=== PATIENT | female | born 1990 | race Caucasian/White ===

== ENCOUNTER 2019-08-22 02:37 | Emergency (ER) | payer MEDICAID, SELFPAY ==
[2019-08-22 02:41] VITALS: BP 138/82; PULSE 135; RESP 18; TEMP 37.2; O2SAT 98; BMI 37.1
--- NOTE | 2019-08-22 02:42 | ED_ITS ---
Entered by Allyn Nichole, acting as scribe for Radha Mcmanus MD HPI - Chest Pain General: Chief Complaint: Fever Stated Complaint: cp/fever/tolliver Time Seen by Provider: 08/22/19 02:40 Source: patient Mode of arrival: ambulatory Limitations: no limitations History of Present Illness: HPI narrative: 28 yo f came to the er pov for chest pain, fever, cough, eye and head pain. 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 Pt states that her 2 boys had the flu last week. She denies any vomiting or diarrhea. She denies any shortness of breath. Patient denies any worsening or improving factors. complaint: chest pain and other Onset (ago): day(s) (last night) Timing of current episode: constant Prior episodes: No Onset: during rest Pain radiation: none Severity: mild Associated symptoms: Reports fever(s); Deny abdominal pain, nausea or vomiting Review of Systems 2 General: Reports: other (negative unless marked) Const: Reports: fever Eyes: Denies: blurry vision or eye discomfort ENMT: Denies: throat pain or dental pain Card: Reports: chest pain Resp: Reports: productive cough GI: Denies: abdominal pain, nausea, vomiting or diarrhea : Denies: painful urination Musc: Denies: neck pain or back pain Skin/Breast: Denies: rash Neuro: Reports: headache Psych: Denies: depression Rashel/Lymph: Denies: easy bruising All/Imm: Denies: hives Physical Exam Const: COMMON NORMALS: no apparent distress, oriented x3 and healthy appearing HENMT: COMMON NORMALS: normocephalic and head/scalp atraumatic HEAD & SCALP: normocephalic and atraumatic Eye: COMMON NORMALS: PERRL and EOMs intact bilaterally PUPIL: Yes PERRL Neck/C-Spine: COMMON NORMALS: full ROM and supple Chest: COMMONS NORMALS: inspection of chest normal and palpation of chest normal Resp: COMMON NORMALS: normal respiratory effort, no retractions, no use of accessory muscles and clear to auscultation bilaterally AUSCULTATION: clear to auscultation bilaterally Cardio: COMMON NORMALS: regular rhythm and no murmurs RATE: tachycardic RHYTHM: regular rhythm GI: COMMON NORMALS: normal to inspection, nondistended, normoactive bowel sounds, soft to palpation, non-tender and no masses PALPATION: Yes soft Extremity: COMMON NORMALS: normal to inspection and full ROM Neuro: COMMON NORMALS: oriented x3, moves all extremities and no focal motor deficits Psych: COMMON NORMALS: mental status grossly normal, thought process normal and cooperative THOUGHT PROCESS: normal thought process Skin: COMMON NORMALS: no rashes or lesions noted and no wounds GENERAL SKIN EXAM: no rashes or lesions noted Course Vital Signs: Vital signs: Vital Signs Temperature 99 F 08/22/19 02:41 Pulse Rate 135 H 08/22/19 02:41 Respiratory Rate 18 08/22/19 02:41 Blood Pressure 138/82 08/22/19 02:41 Pulse Oximetry 98 08/22/19 02:41 MDM - Chest Pain MDM Narrative: Medical decision making narrative: Patient presents with cough congestion and did have some tachycardia. She had an elevated d-dimer and CT scan here showed no signs of pulmonary embolism. Patient CT showed no signs of pneumonia. Patient likely has a viral upper respiratory infection. Her influenza was negative. Treatment supportive and she is to take Motrin and Tylenol at home. She does vape and I did give her cessation counseling. She is stable for discharge is return if worsening. Lab Data: Labs: Lab Results 08/22/19 08/22/19 08/22/19 Range/Units 02:55 02:55 02:55 WBC (4.0-10.0) 10^3/ uL RBC (4.1-5.3) 10^6/u L Hgb (11.5-15.3) g/dL Hct (37.0-47.0) % MCV (81-99) fL MCH (28.0-34.0) pg MCHC (30.0-36.0) g/dL RDW (12.1-15.1) % Plt Count (130-400) 10^3/c mm MPV (7.4-10.4) fL Neut % (Auto) % Lymph % (Auto) % [place] % (Auto) % Eos % (Auto) % Baso % (Auto) % Neut # (Auto) (1.8-7.7) 10^3/u L Lymph # (Auto) (0.8-4.8) 10^3/u L [place] # (Auto) (0.2-0.9) 10^3/u L Eos # (Auto) (0.0-0.8) 10^3/u L Baso # (Auto) (0.0-0.1) 10^3/u L Nucleated RBC % (a uto) % Nucleated RBCs # /100WBC D-Dimer (0-0.59) ug/mIFE U Sodium (136-145) mmol/L Potassium (3.5-5.1) mmol/L Chloride (98-107) mmol/L Carbon Dioxide (22-29) mmol/L Anion Gap (5-19) BUN (6-20) mg/dL Creatinine (0.5-0.9) mg/dL GFR Calculation (90-130) mL/min Glucose (65-115) mg/dL Calculated Osmolal ity (285-295) mOsm/k g Calcium (8.5-10.5) mg/dL Total Bilirubin (0.15-1.2) mg/dL AST (0-32) U/L ALT (0-33) U/L Alkaline Phosphata se (35-105) IU/L Total Protein (6.6-8.7) g/dL Albumin (3.5-5.2) g/dL Globulin (1.3-4.6) g/dL Lipase (13-60) U/L HCG, Qual Negative (Negative) Urine Color Yellow (Yellow) Urine Appearance Clear (CLEAR) Urine pH 8 H (5-7) Ur Specific Gravit y 1.010 (1.005-1.030) Urine Protein Neg (Negative) Urine Glucose (UA) Norm (Normal) Urine Ketones Negative (Negative) Urine Blood Trace H (Negative) Urine Nitrate Negative (Negative) Urine Bilirubin Neg (NEGATIVE) Prot Sulfosalicyli c Acd Negative Urine Urobilinogen Norm (Negative) mg/dL Ur Leukocyte Varsha ase Negative (Negative) Urine RBC 5-10 H (0-2) /hpf Urine WBC None (0-5) /hpf Ur Squamous Epith Cells 5-10 H (0-5) Urine Bacteria 2+ H (NONE) Influenza Type A A g Negative (Negative) POC Influenza B Ag Negative (Negative) 08/22/19 08/22/19 08/22/19 Range/Units 02:55 02:55 02:55 WBC 7.5 (4.0-10.0) 10^3/ uL RBC 4.80 (4.1-5.3) 10^6/u L Hgb 13.9 (11.5-15.3) g/dL Hct 41.0 (37.0-47.0) % MCV 85.4 (81-99) fL MCH 29.0 (28.0-34.0) pg MCHC 33.9 (30.0-36.0) g/dL RDW 11.9 L (12.1-15.1) % Plt Count 228 (130-400) 10^3/c mm MPV 10.4 (7.4-10.4) fL Neut % (Auto) 82.8 % Lymph % (Auto) 7.2 % [place] % (Auto) 8.8 % Eos % (Auto) 0.5 % Baso % (Auto) 0.4 % Neut # (Auto) 6.2 (1.8-7.7) 10^3/u L Lymph # (Auto) 0.5 L (0.8-4.8) 10^3/u L [place] # (Auto) 0.7 (0.2-0.9) 10^3/u L Eos # (Auto) 0.0 (0.0-0.8) 10^3/u L Baso # (Auto) 0.0 (0.0-0.1) 10^3/u L Nucleated RBC % (a uto) 0 % Nucleated RBCs # 0.0 /100WBC D-Dimer 1.64 H (0-0.59) ug/mIFE U Sodium 136 (136-145) mmol/L Potassium 3.8 (3.5-5.1) mmol/L Chloride 102 (98-107) mmol/L Carbon Dioxide 23 (22-29) mmol/L Anion Gap 14.8 (5-19) BUN 11 (6-20) mg/dL Creatinine 0.6 (0.5-0.9) mg/dL GFR Calculation 119.9 (90-130) mL/min Glucose 140 H (65-115) mg/dL Calculated Osmolal ity 280 L (285-295) mOsm/k g Calcium 9.9 (8.5-10.5) mg/dL Total Bilirubin 0.2 (0.15-1.2) mg/dL AST 24 (0-32) U/L ALT 26 (0-33) U/L Alkaline Phosphata se 61 (35-105) IU/L Total Protein 7.1 (6.6-8.7) g/dL Albumin 4.0 (3.5-5.2) g/dL Globulin 3.1 (1.3-4.6) g/dL Lipase 10 L (13-60) U/L HCG, Qual (Negative) Urine Color (Yellow) Urine Appearance (CLEAR) Urine pH (5-7) Ur Specific Gravit y (1.005-1.030) Urine Protein (Negative) Urine Glucose (UA) (Normal) Urine Ketones (Negative) Urine Blood (Negative) Urine Nitrate (Negative) Urine Bilirubin (NEGATIVE) Prot Sulfosalicyli c Acd Urine Urobilinogen (Negative) mg/dL Ur Leukocyte Varsha ase (Negative) Urine RBC (0-2) /hpf Urine WBC (0-5) /hpf Ur Squamous Epith Cells (0-5) Urine Bacteria (NONE) Influenza Type A A g (Negative) POC Influenza B Ag (Negative) Imaging Data^: CXR: Attestation: I personally reviewed and interpreted this imaging study as follows: My impression: no acute abnormality CT Chest: Radiologist's impression: [place] [address] CT Scan Report Signed Patient: Kasie Pavon Unit #: [id number] : 1990 Age/Sex: 28 / F ADM Date: 08/22/19 Loc: ER Room/Bed: Attending Dr: Ordering Provider/Ordering MD: Radha Mcmanus MD Date of Service: 08/22/19 Procedure(s): CT angio chest PE protcl [id number] Accession Number(s): [id number] Report Number: [id number] PROCEDURE INFORMATION: Exam: CT Angiography Chest With Contrast Exam date and time: 08/22/2019 4:15 AM Age: 28 years old Clinical indication: Cough and shortness of breath; Chest pain; Type not specified; Additional info: Pe TECHNIQUE: Imaging protocol: Computed tomographic angiography of the chest with intravenous contrast. 3D rendering: MIP and/or 3D reconstructed images were created by the technologist. Total DLP: 631.37 mGy-cm Radiation optimization: All CT scans at this facility use at least one of these dose optimization techniques: automated exposure control; mA and/or kV adjustment per patient size (includes targeted exams where dose is matched to clinical indication); or iterative reconstruction. Contrast material: OMNI 350; Contrast volume: 95 ml; Contrast route: 20G; COMPARISON: CT chest w con* [id number] 05/11/2018 11:39 PM FINDINGS: Pulmonary arteries: No dissection. No visualized embolism as characterized to the most proximal segmental level. Consider alternative form of imaging if indicated. Aorta: Unremarkable. No aortic aneurysm. No aortic dissection. Lungs: Lungs are well aerated without a focal area of consolidation. Pleural space: Unremarkable. No pneumothorax. No pleural effusion. Heart: No pericardial effusion Mediastinum: Soft tissues of the mediastinum appear unremarkable. Small hiatal hernia. Liver: Mild fatty infiltration of the liver. Lymph nodes: Nonspecific lymph nodes the me within the mediastinum including the subcarinal region and juxta aortic region. Largest 16 mm. Bones/joints: Unremarkable. No acute fracture. Soft tissues: Unremarkable. Other findings: thoracic inlet is unremarkable. CT/CT angio chest PE protcl [id number] IMPRESSION: 1. No dissection. No visualized embolism as characterized to the most proximal segmental level. Consider alternative form of imaging if indicated. 2. Nonspecific lymph nodes the me within the mediastinum including the subcarinal region and juxta aortic region. Largest 16 mm. 3. Lungs are well aerated without a focal area of consolidation. Discharge Plan Discharge Patient Disposition: Home, Self-Care Clinical Impression: Viral URI Condition: Stable Prescriptions: New EC-Naprosyn 500 mg tablet,delayed release (DR/EC) 500 mg PO BID PRN (Reason: pain) Qty: 20 RF: 0 Discharge Orders: Discharge Order (Routine); Ordered 08/22/19 Ordered By: Radha Mcmanus Referrals: Annel Garcia MD [Primary Care Provider] - Jose Manning MD [Family Provider] - Discharge Diet: Advance as tolerated Discharge Activity: Resume usual activity Patient Instructions: Upper Respiratory Infection (ED) Coding Level of Care Code ED Staff [employer] Officer for Chg Fwd Exam Comprehensive The documentation recorded by the Dionisio spencer Stephanie Lyn, accurately reflects the service I personally performed and the decisions made by me, Radha Mcmanus MD Aug 22, 2019 02:37
--- NOTE | 2019-08-22 02:43 | XRR_ITS ---
PROCEDURE INFORMATION: Exam: XR Chest, 2 Views Exam date and time: 08/22/2019 3:10 AM Age: 28 years old Clinical indication: Fever and shortness of breath; Additional info: Fever, SOB, chest pain x 1 day TECHNIQUE: Imaging protocol: XR of the chest Views: 2 views. COMPARISON: CR Chest 2 views* [id number] 05/11/2018 10:23 PM FINDINGS: Lungs: Unremarkable. No consolidation. Pleural space: Unremarkable. No pleural effusion. No pneumothorax. Heart/Mediastinum: Unremarkable. No cardiomegaly. Bones/joints: Unremarkable. XR/XR chest 2V* [id number] IMPRESSION: No acute findings.
[2019-08-22] MEDS: acetaminophen 500 mg Tablet 1000 MG PO (02:58)
[2019-08-22] MEDS: sodium chloride 0.9% 1,000 ML 999 ML IV (02:58)
[2019-08-22 03:12] LABS: HCG Qualitative Urine. Negative (Negative)
[2019-08-22 03:20] LABS: Add Urine Microscopic? YES; Bilirubin Urine Neg (NEGATIVE); Blood Urine Trace (Negative); Glucose Urine UA Norm (Normal); Ketones Urine Negative (Negative); Leukocyte Esterase Urine Negative (Negative); Nitrate Urine Negative (Negative); Protein Urine Neg (Negative); Urine Appearance Clear (CLEAR); Urine Color Yellow (Yellow); Urobilinogen Urine Norm (Negative); pH Urine 8 (5-7)
[2019-08-22 03:24] LABS: Influenza A by IFA Negative (Negative)
[2019-08-22 03:25] LABS: Influenza B by IFA Negative (Negative)
[2019-08-22 03:27] LABS: Add Urine Culture? Yes; Bacteria Urine 2+
[2019-08-22 03:29] LABS: Sulfosalicylic Acid Urine Negative
[2019-08-22 03:44] LABS: Basophils % 0.4 %; Eosinophils % 0.5 %; Hemoglobin 13.9 g/dL (11.5-15.3); Lymphocytes # 0.5 10^3/uL (0.8-4.8); Lymphocytes % 7.2 %; Mean Corpuscular HGB Conc 33.9 g/dL (30.0-36.0); Mean Corpuscular Volume 85.4 fL (81-99); Mean Platelet Volume 10.4 fL (7.4-10.4); Monocytes # 0.7 10^3/uL (0.2-0.9); Monocytes % 8.8 %; Neutrophils # 6.2 10^3/uL (1.8-7.7); Neutrophils % 82.8 %; Nucleated Red Blood Cells % 0 %; Platelet Count 228 10^3/cmm (130-400); Red Cell Distribution Width 11.9 % (12.1-15.1); White Blood Count 7.5 10^3/uL (4.0-10.0)
[2019-08-22 03:57] LABS: Alanine Aminotransferase 26 U/L (0-33); Alkaline Phosphatase 61 IU/L (35-105); Anion Gap 14.8 (5-19); Aspartate Amino Transferase 24 U/L (0-32); Blood Urea Nitrogen 11 mg/dL (6-20); Calcium 9.9 mg/dL (8.5-10.5); Carbon Dioxide 23 mmol/L (22-29); Chloride 102 mmol/L (98-107); Globulin 3.1 g/dL (1.3-4.6); Glomerular Filtration Rate 119.9 mL/min (90-130); Glucose 140 mg/dL (65-115); Lipase 10 U/L (13-60); Osmolality Calculated 280 mOsm/kg (285-295); Potassium 3.8 mmol/L (3.5-5.1); Sodium 136 mmol/L (136-145); Total Bilirubin 0.2 mg/dL (0.15-1.2); Total Protein 7.1 g/dL (6.6-8.7)
[2019-08-22 03:58] LABS: D Dimer 1.64 ug/mIFEU (0-0.59)
--- NOTE | 2019-08-22 04:02 | CTR_ITS ---
PROCEDURE INFORMATION: Exam: CT Angiography Chest With Contrast Exam date and time: 08/22/2019 4:15 AM Age: 28 years old Clinical indication: Cough and shortness of breath; Chest pain; Type not specified; Additional info: Pe TECHNIQUE: Imaging protocol: Computed tomographic angiography of the chest with intravenous contrast. 3D rendering: MIP and/or 3D reconstructed images were created by the technologist. Total DLP: 631.37 mGy-cm Radiation optimization: All CT scans at this facility use at least one of these dose optimization techniques: automated exposure control; mA and/or kV adjustment per patient size (includes targeted exams where dose is matched to clinical indication); or iterative reconstruction. Contrast material: OMNI 350; Contrast volume: 95 ml; Contrast route: 20G; COMPARISON: CT chest w con* [id number] 05/11/2018 11:39 PM FINDINGS: Pulmonary arteries: No dissection. No visualized embolism as characterized to the most proximal segmental level. Consider alternative form of imaging if indicated. Aorta: Unremarkable. No aortic aneurysm. No aortic dissection. Lungs: Lungs are well aerated without a focal area of consolidation. Pleural space: Unremarkable. No pneumothorax. No pleural effusion. Heart: No pericardial effusion Mediastinum: Soft tissues of the mediastinum appear unremarkable. Small hiatal hernia. Liver: Mild fatty infiltration of the liver. Lymph nodes: Nonspecific lymph nodes the me within the mediastinum including the subcarinal region and juxta aortic region. Largest 16 mm. Bones/joints: Unremarkable. No acute fracture. Soft tissues: Unremarkable. Other findings: thoracic inlet is unremarkable. CT/CT angio chest PE protcl [id number] IMPRESSION: 1. No dissection. No visualized embolism as characterized to the most proximal segmental level. Consider alternative form of imaging if indicated. 2. Nonspecific lymph nodes the me within the mediastinum including the subcarinal region and juxta aortic region. Largest 16 mm. 3. Lungs are well aerated without a focal area of consolidation. Radiation Dose CTDIVOL = (mGy): DLP = 631.37 (mGy-cm)
[2019-08-22] MEDS: iohexol 350 mg/mL 100 mL Btl IV (04:33)
[2019-08-22 05:44] VITALS: TEMP 36.7
== END 2019-08-22 05:44 | disposition home or self-care (01) ==
PROVIDERS: Emergency Provider Emergency Medicine; Family Provider Family Medicine; PCP Family Medicine
DX: J06.9 Acute upper respiratory infection, unspecified (principal)
CPT/HCPCS: 12345; 71046; 71275; 80053; 81001; 81025; 83690; 85025; 85378; 87086; 87804; 96360; 96361; 99283; J7030; Q9967

== ENCOUNTER 2020-03-10 14:20 | Outpatient (CLI) | payer MEDICAID, SELFPAY ==
--- NOTE | 2020-03-10 14:35 | MR_ITS ---
WS: [id number] MRI LUMBAR SPINE NONCONTRAST TECHNIQUE: Sagittal T1, T2 and STIR imaging. Axial T1 and T2 imaging. CLINICAL INFORMATION: LOW BACK PAIN COMPARISON: None. FINDINGS: Mild lumbar curve. No acute compression. No high-grade central canal stenosis. L1-L2: Normal. L2-L3: Normal. L3-L4: Mild annular bulging with a shallow right pericentral protrusion. Slight narrowing of the righ t subarticular recess and encroachment traversing right L4 nerve root. Small right foraminal protrusi on slightly encroaches on the exiting right L3 nerve root. Foramen are patent. Mild facet arthropathy . L4-L5: Mild annular bulging with slight effacement of the ventral thecal sac. Tiny annular fissure. S light narrowing of the right subarticular recess. Foramen are patent. Mild facet arthropathy. L5-S1: No significant disc bulging. Spinal canal and foramen are patent. Mild facet arthropathy. Visualized pelvic bony structures: Normal. Paravertebral soft tissues: Normal. Incidental Tarlov cyst in the sacrum. MR/MR lumbar spine wo con* [id number] IMPRESSION: 1. Mild lumbar curve. No acute compression. No high-grade central canal stenos is. 2. Shallow right pericentral protrusion L3-4 with narrowing of the right subar ticular recess. In addition, small right foraminal protrusion at this level con tacts the exiting right L3 nerve root laterally. Recommend correlation for righ t L3 nerve root symptoms. 3. Annular bulging eccentric to the right with slight narrowing of the right s ubarticular recess and slight encroachment traversing right L5 nerve root. 4. Mild facet arthropathy L3-L5.
== END 2020-03-10 14:21 | disposition home or self-care (01) ==
LOC: RADWPI 14:31
PROVIDERS: PCP Family Medicine; Visit Provider Physician Assistant
DX: M54.5 Low back pain (principal); M47.816 Spondylosis without myelopathy or radiculopathy, lumbar region
CPT/HCPCS: 72148

== ENCOUNTER 2020-05-26 18:18 | Emergency (ER) | payer MEDICAID, SELFPAY ==
[2020-05-26 18:21] VITALS: BP 148/62; PULSE 102; RESP 18; TEMP 36.4; O2SAT 98; BMI 31.4
[2020-05-26 18:54] LABS: Basophils # 0.1 10^3/uL (0.0-0.1); Eosinophils # 0.8 10^3/uL (0.0-0.8); Eosinophils % 7.1 %; Hematocrit 42.7 % (37.0-47.0); Hemoglobin 14.6 g/dL (11.5-15.3); Lymphocytes # 4.2 10^3/uL (0.8-4.8); Lymphocytes % 37.6 %; Mean Corpuscular HGB Conc 34.2 g/dL (30.0-36.0); Mean Corpuscular Hemoglobin 30.5 pg (28.0-34.0); Mean Corpuscular Volume 89.1 fL (81-99); Mean Platelet Volume 11.1 fL (7.4-10.4); Monocytes # 0.8 10^3/uL (0.2-0.9); Monocytes % 6.8 %; Neutrophils # 5.25 10^3/uL (1.8-7.7); Neutrophils % 47.3 %; Nucleated Red Blood Cells % 0 %; Platelet Count 236 10^3/cmm (130-400); Red Blood Count 4.79 10^6/uL (4.1-5.3); Red Cell Distribution Width 12.2 % (12.1-15.1); White Blood Count 11.1 10^3/uL (4.0-10.0)
[2020-05-26 18:57] LABS: Add Urine Microscopic? YES; Bilirubin Urine Neg (Negative); Blood Urine 2+ (Negative); Glucose Urine UA Norm (Normal); Ketones Urine Negative (Negative); Leukocyte Esterase Urine 1+ (Negative); Nitrate Urine Negative (Negative); Protein Urine Neg (Negative); Specific Gravity, Urine 1.015 (1.005-1.030); Urine Appearance SL Hazy (CLEAR); Urine Color Yellow (Yellow); Urobilinogen Urine 4 mg/dL (Negative); pH Urine 7 (5-7)
--- NOTE | 2020-05-26 19:06 | W.ED.ABDPA2 ---
Documented by User: Eitan Jamil DO 05/27/20 08:05 HPI - Abdominal Pain General: Chief Complaint: Abdominal Pain Stated Complaint: abd pain Time Seen by Provider: 05/26/20 18:29 History of Present Illness: HPI narrative: 29-year-old female presents to the emergency room with complaints of abdominal pain. She states this is been going on for some time now. She has had 2 other episodes like this each is lasted around 24 hours. She cannot really identify any triggering episodes or relieving episodes. She is tried a few [id number] things such as Tums Mylanta without any significant relief. She does note that she gets a lot of eructations in the center very foul tasting evidently she reports it was tasting like rotten eggs. She states sitting still does seem to help. She denies any medication melena hematemesis or coffee-ground emesis. No dysuria urgency or frequency no hematuria.. MD elicited complaint: abdominal pain Onset (ago): week(s) Pain Consistency: intermittent Location: Epigastric Severity: moderate Quality: cramping Radiation: none Migration to: no migration Exacerbating factors: nothing Relieving factors: other (Sitting still) Associated Symptoms: Reports belching, bloating and dyspepsia; Denies change in bowel habits, change in stool character, chills, coffee ground emesis, constipation, GI cramping, diarrhea, dysuria, excessive flatus, fever(s), heartburn, hematochezia, hematuria, hematemesis, fecal incontinence, loose stools, melena, nausea, poor appetite, syncope and vomiting Review of Systems Const: Denies: fever(s) or chills ENMT: Denies: throat pain, ear or mastoid pain, nasal discharge or nasal congestion Card: Denies: syncope Resp: Denies: dyspnea, productive cough or non-productive cough GI: Reports: bloating and belching; Denies: nausea, vomiting, hematemesis, coffee ground emesis, heartburn, diarrhea, constipation, GI cramping, excessive flatus, fecal incontinence, change in bowel habits, change in stool character, hematochezia or melena : Denies: dysuria or hematuria Skin/Breast: Denies: rash or pruritus PFSH ED PFSH: Medical History (Updated 05/26/20 @ 20:57 by Roxy Jones) Endometriosis Surgical History (Updated 05/26/20 @ 19:09 by Eitan Jamil DO) History of appendectomy Physical Exam Const: ORIENTATION/CONSCIOUSNESS: Yes oriented to person, Yes oriented to place and Yes oriented to time HENMT: COMMON NORMALS: normocephalic, atraumatic and hearing grossly normal bilaterally HEAD & SCALP: normocephalic and atraumatic Neck/C-Spine: COMMON NORMALS: no JVD Resp: COMMON NORMALS: normal respiratory effort, No retractions, No use of accessory muscles and clear to auscultation bilaterally AUSCULTATION: clear to auscultation bilaterally Cardio: COMMON NORMALS: no JVD, regular rate, regular rhythm and No murmurs present (Cardio) RATE: regular rate RHYTHM: regular rhythm GI: COMMON NORMALS: No hepatosplenomegaly present AUSCULTATION: Yes normoactive bowel sounds PALPATION: Yes Tenderness to palpation present (GI) (epigastric), No Guarding due to palpation present (GI) and Yes No hepatosplenomegaly present OTHER: no Murhpy's sign Extremity: COMMON NORMALS: normal to inspection, capillary refill normal, no clubbing, cyanosis or edema, no calf tenderness and no pedal edema Neuro: SENSORIUM/ORIENTATION: Yes oriented to person, Yes oriented to place and Yes oriented to time Skin: COMMON NORMALS: no rashes or lesions noted GENERAL SKIN EXAM: no rashes or lesions noted Course Vital Signs: Vital signs: Vital Signs Temperature 97.6 F 05/26/20 18:21 Pulse Rate 72 05/26/20 21:09 Respiratory Rate 18 05/26/20 21:09 Blood Pressure 120/78 05/26/20 21:09 Pulse Oximetry 97 05/26/20 21:09 MDM - Abdominal Pain MDM Narrative: Medical decision making narrative: Care turned over to Dr. Fletcher at change of shift please see his notes for final diagnosis and disposition Lab Data: Labs: Lab Results 05/26/20 05/26/20 05/26/20 Range/Units 18:30 18:50 18:50 WBC 11.1 H (4.0-10.0) 10^3/ uL RBC 4.79 (4.1-5.3) 10^6/u L Hgb 14.6 (11.5-15.3) g/dL Hct 42.7 (37.0-47.0) % MCV 89.1 (81-99) fL MCH 30.5 (28.0-34.0) pg MCHC 34.2 (30.0-36.0) g/dL RDW 12.2 (12.1-15.1) % Plt Count 236 (130-400) 10^3/c mm MPV 11.1 H (7.4-10.4) fL Neut % (Auto) 47.3 % Lymph % (Auto) 37.6 % White % (Auto) 6.8 % Eos % (Auto) 7.1 % Baso % (Auto) 1.0 % Neut # (Auto) 5.25 (1.8-7.7) 10^3/u L Lymph # (Auto) 4.2 (0.8-4.8) 10^3/u L White # (Auto) 0.8 (0.2-0.9) 10^3/u L Eos # (Auto) 0.8 (0.0-0.8) 10^3/u L Baso # (Auto) 0.1 (0.0-0.1) 10^3/u L Nucleated RBC % (a uto) 0 % Nucleated RBCs # 0.0 /100WBC Sodium Potassium Chloride Carbon Dioxide Anion Gap BUN Creatinine GFR Calculation Glucose Calculated Osmolal ity Calcium Total Bilirubin AST ALT Alkaline Phosphata se Total Protein Albumin Globulin HCG, Qual Negative (Negative) Urine Color Yellow (Yellow) Urine Appearance Sl hazy (CLEAR) Urine pH 7 (5-7) Ur Specific Gravit y 1.015 (1.005-1.030) Urine Protein Neg (Negative) Urine Glucose (UA) Norm (Normal) Urine Ketones Negative (Negative) Urine Blood 2+ H (Negative) Urine Nitrate Negative (Negative) Urine Bilirubin Neg (Negative) Urine Urobilinogen 4 H (Negative) mg/dL Ur Leukocyte Varsha ase 1+ H (Negative) Urine RBC 5-10 H (0-2) /hpf Urine WBC 5-10 H (0-5) /hpf Ur Squamous Epith Cells 10-15 H (0-5) /hpf Amorphous Sediment Not Reportable Urine Bacteria 1+ H (NONE) /hpf 05/26/20 05/26/20 Range/Units 18:50 19:32 WBC (4.0-10.0) 10^3/ uL RBC (4.1-5.3) 10^6/u L Hgb (11.5-15.3) g/dL Hct (37.0-47.0) % MCV (81-99) fL MCH (28.0-34.0) pg MCHC (30.0-36.0) g/dL RDW (12.1-15.1) % Plt Count (130-400) 10^3/c mm MPV (7.4-10.4) fL Neut % (Auto) % Lymph % (Auto) % White % (Auto) % Eos % (Auto) % Baso % (Auto) % Neut # (Auto) (1.8-7.7) 10^3/u L Lymph # (Auto) (0.8-4.8) 10^3/u L White # (Auto) (0.2-0.9) 10^3/u L Eos # (Auto) (0.0-0.8) 10^3/u L Baso # (Auto) (0.0-0.1) 10^3/u L Nucleated RBC % (a uto) % Nucleated RBCs # /100WBC Sodium Cancelled 139 Potassium Cancelled 3.8 Chloride Cancelled 108 H Carbon Dioxide Cancelled 25 Anion Gap Cancelled 9.8 BUN Cancelled 12 Creatinine Cancelled 0.5 GFR Calculation Cancelled 146.9 H Glucose Cancelled 98 Calculated Osmolal ity Cancelled 288 Calcium Cancelled 8.6 Total Bilirubin Cancelled 0.2 AST Cancelled 20 ALT Cancelled 40 H Alkaline Phosphata se Cancelled 59 Total Protein Cancelled 5.8 L Albumin Cancelled 3.5 Globulin Cancelled 2.3 HCG, Qual (Negative) Urine Color (Yellow) Urine Appearance (CLEAR) Urine pH (5-7) Ur Specific Gravit y (1.005-1.030) Urine Protein (Negative) Urine Glucose (UA) (Normal) Urine Ketones (Negative) Urine Blood (Negative) Urine Nitrate (Negative) Urine Bilirubin (Negative) Urine Urobilinogen (Negative) mg/dL Ur Leukocyte Varsha ase (Negative) Urine RBC (0-2) /hpf Urine WBC (0-5) /hpf Ur Squamous Epith Cells (0-5) /hpf Amorphous Sediment Urine Bacteria (NONE) /hpf Discharge Plan Discharge Patient Disposition: Home Clinical Impression: Abdominal pain Qualifiers: Abdominal location: epigastric Qualified Code(s): R10.13 - Epigastric pain Condition: Stable Prescriptions: New Protonix 40 mg tablet,delayed release (DR/EC) 40 mg PO DAILY Qty: 30 RF: 0 No Action phentermine 37.5 mg tablet 37.5 mg PO DAILY@1100 RF: 0 Discharge Orders: Discharge ED (Routine); Ordered 05/26/20 Ordered By: Roxy Jones Referrals: Annel Garcia MD [Primary Care Provider] - 1-3 days Parish Chawla MD [Physician] - 1-3 days Discharge Diet: Advance as tolerated and Clear Liquid Discharge Activity: Increase activity as tolerated Patient Instructions: Abdominal Pain (ED) Activity Restrictions/Additional Instructions: Please return to the ER immediately for any of the signs or symptoms listed on your discharge instruction sheets, worsening/changing of your symptoms, you are not getting better as quickly as expected, or for ANY other cause or concerns. Please return to the ER for vomiting, blood in your stools, dark black tarry stools or for any other cause for concern. Sign Out Sign Out Data: Patient Sign Out occurred on 05/26/20 at 20:16. Patient's care was discussed, and care was transferred from to Roxy Jones. Coding Level of Care Code ED Manager Customs for Chg Fwd Exam Comprehensive Documented by User: Roxy Jones 05/26/20 23:44 HPI - Abdominal Pain General: Chief Complaint: Abdominal Pain Stated Complaint: abd pain Time Seen by Provider: 05/26/20 18:29 [facility] ED PFSH: Medical History (Updated 05/26/20 @ 20:57 by Roxy oJnes) Endometriosis Surgical History (Updated 05/26/20 @ 19:09 by Eitan Jamil DO) History of appendectomy Course Vital Signs: Vital signs: Vital Signs Temperature 97.6 F 05/26/20 18:21 Pulse Rate 72 12/14/20 21:09 Respiratory Rate 18 05/26/20 21:09 Blood Pressure 120/78 05/26/20 21:09 Pulse Oximetry 97 05/26/20 21:09 MDM - Abdominal Pain MDM Narrative: Medical decision making narrative: 2107 -Case turned over to me at change of shift from Dr. Jamil. Please see his note for his history, physical exam and medical decision-making notes. Davina comes in with recurrent epigastric abdominal pain that is located in the midline to the left upper quadrant. She has significant sour taste in the back of her mouth with sulfur tasting like belching. Patient denies any lower abdominal pain. She denies any right upper quadrant pain. Patient symptoms have been recurrent. She does not take anything regularly for reflux or gastritis. I will place her on Protonix and give her a GI cocktail. The patient agrees to return should her symptoms change or worsen she does want to follow-up with general surgery for outpatient evaluation. I will refer her to Dr. Chawla. She understands return here if she worsens or develops any new signs or symptoms. At this time her abdominal exam is benign, her vital signs are stable and I see no acute surgical abdomen or cardiac-like manifestation for her symptoms. Lab Data: Attestation: I reviewed the patient's lab results. Labs: Lab Results 05/26/20 05/26/20 05/26/20 Range/Units 18:30 18:50 18:50 WBC 11.1 H (4.0-10.0) 10^3/ uL RBC 4.79 (4.1-5.3) 10^6/u L Hgb 14.6 (11.5-15.3) g/dL Hct 42.7 (37.0-47.0) % MCV 89.1 (81-99) fL MCH 30.5 (28.0-34.0) pg MCHC 34.2 (30.0-36.0) g/dL RDW 12.2 (12.1-15.1) % Plt Count 236 (130-400) 10^3/c mm MPV 11.1 H (7.4-10.4) fL Neut % (Auto) 47.3 % Lymph % (Auto) 37.6 % White % (Auto) 6.8 % Eos % (Auto) 7.1 % Baso % (Auto) 1.0 % Neut # (Auto) 5.25 (1.8-7.7) 10^3/u L Lymph # (Auto) 4.2 (0.8-4.8) 10^3/u L White # (Auto) 0.8 (0.2-0.9) 10^3/u L Eos # (Auto) 0.8 (0.0-0.8) 10^3/u L Baso # (Auto) 0.1 (0.0-0.1) 10^3/u L Nucleated RBC % (a uto) 0 % Nucleated RBCs # 0.0 /100WBC Sodium Potassium Chloride Carbon Dioxide Anion Gap BUN Creatinine GFR Calculation Glucose Calculated Osmolal ity Calcium Total Bilirubin AST ALT Alkaline Phosphata se Total Protein Albumin Globulin HCG, Qual Negative (Negative) Urine Color Yellow (Yellow) Urine Appearance Sl hazy (CLEAR) Urine pH 7 (5-7) Ur Specific Gravit y 1.015 (1.005-1.030) Urine Protein Neg (Negative) Urine Glucose (UA) Norm (Normal) Urine Ketones Negative (Negative) Urine Blood 2+ H (Negative) Urine Nitrate Negative (Negative) Urine Bilirubin Neg (Negative) Urine Urobilinogen 4 H (Negative) mg/dL Ur Leukocyte Varsha ase 1+ H (Negative) Urine RBC 5-10 H (0-2) /hpf Urine WBC 5-10 H (0-5) /hpf Ur Squamous Epith Cells 10-15 H (0-5) /hpf Amorphous Sediment Not Reportable Urine Bacteria 1+ H (NONE) /hpf 05/26/20 05/26/20 Range/Units 18:50 19:32 WBC (4.0-10.0) 10^3/ uL RBC (4.1-5.3) 10^6/u L Hgb (11.5-15.3) g/dL Hct (37.0-47.0) % MCV (81-99) fL MCH (28.0-34.0) pg MCHC (30.0-36.0) g/dL RDW (12.1-15.1) % Plt Count (130-400) 10^3/c mm MPV (7.4-10.4) fL Neut % (Auto) % Lymph % (Auto) % White % (Auto) % Eos % (Auto) % Baso % (Auto) % Neut # (Auto) (1.8-7.7) 10^3/u L Lymph # (Auto) (0.8-4.8) 10^3/u L White # (Auto) (0.2-0.9) 10^3/u L Eos # (Auto) (0.0-0.8) 10^3/u L Baso # (Auto) (0.0-0.1) 10^3/u L Nucleated RBC % (a uto) % Nucleated RBCs # /100WBC Sodium Cancelled 139 Potassium Cancelled 3.8 Chloride Cancelled 108 H Carbon Dioxide Cancelled 25 Anion Gap Cancelled 9.8 BUN Cancelled 12 Creatinine Cancelled 0.5 GFR Calculation Cancelled 146.9 H Glucose Cancelled 98 Calculated Osmolal ity Cancelled 288 Calcium Cancelled 8.6 Total Bilirubin Cancelled 0.2 AST Cancelled 20 ALT Cancelled 40 H Alkaline Phosphata se Cancelled 59 Total Protein Cancelled 5.8 L Albumin Cancelled 3.5 Globulin Cancelled 2.3 HCG, Qual (Negative) Urine Color (Yellow) Urine Appearance (CLEAR) Urine pH (5-7) Ur Specific Gravit y (1.005-1.030) Urine Protein (Negative) Urine Glucose (UA) (Normal) Urine Ketones (Negative) Urine Blood (Negative) Urine Nitrate (Negative) Urine Bilirubin (Negative) Urine Urobilinogen (Negative) mg/dL Ur Leukocyte Varsha ase (Negative) Urine RBC (0-2) /hpf Urine WBC (0-5) /hpf Ur Squamous Epith Cells (0-5) /hpf Amorphous Sediment Urine Bacteria (NONE) /hpf Discharge Plan Discharge Patient Disposition: Home Clinical Impression: Abdominal pain Qualifiers: Abdominal location: epigastric Qualified Code(s): R10.13 - Epigastric pain Condition: Stable Prescriptions: New Protonix 40 mg tablet,delayed release (DR/EC) 40 mg PO DAILY Qty: 30 RF: 0 No Action phentermine 37.5 mg tablet 37.5 mg PO DAILY@1100 RF: 0 Discharge Orders: Discharge ED (Routine); Ordered 05/26/20 Ordered By: Roxy Jones Referrals: Annel Garcia MD [Primary Care Provider] - 1-3 days Giurgius,Parish, MD [Physician] - 1-3 days Discharge Diet: Advance as tolerated and Clear Liquid Discharge Activity: Increase activity as tolerated Patient Instructions: Abdominal Pain (ED) Activity Restrictions/Additional Instructions: Please return to the ER immediately for any of the signs or symptoms listed on your discharge instruction sheets, worsening/changing of your symptoms, you are not getting better as quickly as expected, or for ANY other cause or concerns. Please return to the ER for vomiting, blood in your stools, dark black tarry stools or for any other cause for concern. Sign Out Sign Out Data: Patient Sign Out occurred on 05/26/20 at 20:16. Patient's care was discussed, and care was transferred from to Roxy Jones. Coding Level of Care Code ED Manager Customs for Chg Fwd Exam Comprehensive
[2020-05-26 19:08] LABS: Add Urine Culture? No; Bacteria Urine 1+ /hpf
[2020-05-26] MEDS: sodium chloride 0.9% 1,000 ML 999 ML IV (19:13)
[2020-05-26 19:14] VITALS: RESP 18; O2SAT 99
[2020-05-26] MEDS: ondansetron 2 mg/ML SDV 2 mL 4 MG IVP (19:14)
[2020-05-26] MEDS: morphine 4 mg/mL SDV 1 mL IVP (19:14)
[2020-05-26 19:16] VITALS: BP 135/90; PULSE 98; RESP 16; O2SAT 100
--- NOTE | 2020-05-26 19:19 | CTR_ITS ---
PROCEDURE INFORMATION: Exam: CT Abdomen And Pelvis With Contrast Exam date and time: 05/26/2020 7:38 PM Age: 29 years old Clinical indication: Nausea and vomiting and other: Burping; Abdominal pain; Localized; Upper; Prior surgery; Surgery type: Appy; Additional info: Abd pain TECHNIQUE: Imaging protocol: Computed tomography of the abdomen and pelvis with intravenous contrast. Radiation optimization: All CT scans at this facility use at least one of these dose optimization techniques: automated exposure control; mA and/or kV adjustment per patient size (includes targeted exams where dose is matched to clinical indication); or iterative reconstruction. Contrast material: OMNI 300; Contrast volume: 95 ml; Contrast route: INTRAVENOUS (IV); COMPARISON: CT abdomen pelvis w con* [id number] 05/01/2018 8:04 AM RADIATION DOSE METRICS: Total DLP (mGy-cm): 1053.23 FINDINGS: Lungs: 3 mm calcified granuloma left lung base, unchanged. No infiltrates at the lung bases. Liver: The liver is unremarkable in appearance. Gallbladder and bile ducts: No calcified gallstones in the gallbladder. No gallbladder wall thickening. No pericholecystic fluid. No biliary dilatation. Pancreas: The pancreas is normal in appearance. No pancreatic duct dilatation. Spleen: The spleen is normal in size and appearance. Adrenal glands: The adrenal glands appear within normal limits. Kidneys and ureters: The kidneys are normal in morphology. No hydronephrosis. No solid mass. Stomach and bowel: No acute gastric abnormality demonstrated. Ingested material is seen in the gastric lumen. A few scattered nonspecific air-fluid levels are noted in the mid to distal small bowel without significant dilatation. No findings of small bowel obstruction. This finding is similar to 05/01/2018. No acute abnormality/inflammatory change of the colon. Appendix: Postop changes near the cecum, consistent with appendectomy. Intraperitoneal space: No pneumoperitoneum. No significant fluid collection. Vasculature: The aorta is unremarkable as demonstrated. Lymph nodes: No pathologically enlarged lymph nodes are demonstrated. Urinary bladder: The urinary bladder is unremarkable in appearance. Reproductive: The uterus and ovaries appear unremarkable. Bones/joints: No fracture or other acute osseous abnormality. Soft tissues: The soft tissues appear unremarkable. CT/CT abdomen pelvis w con* [id number] IMPRESSION: 1. Postop changes near the cecum, consistent with appendectomy. This is new when compared to 05/01/2018. 2. No acute abnormality demonstrated in the abdomen and pelvis. 3. No new abnormality demonstrated, when compared to the prior study. Radiation Dose CTDIVOL = (mGy): DLP = 1053.23 (mGy-cm)
[2020-05-26 19:23] LABS: HCG, Serum Qual Negative (Negative)
[2020-05-26 19:58] LABS: Alanine Aminotransferase 40 U/L (0-33); Albumin Level 3.5 g/dL (3.5-5.2); Alkaline Phosphatase 59 IU/L (35-105); Anion Gap 9.8 (5-19); Aspartate Amino Transferase 20 U/L (0-32); Blood Urea Nitrogen 12 mg/dL (6-20); Calcium 8.6 mg/dL (8.5-10.5); Carbon Dioxide 25 mmol/L (22-29); Chloride 108 mmol/L (98-107); Globulin 2.3 g/dL (1.3-4.6); Glomerular Filtration Rate 146.9 mL/min (90-130); Glucose 98 mg/dL (65-115); Osmolality Calculated 288 mOsm/kg (285-295); Potassium 3.8 mmol/L (3.5-5.1); Sodium 139 mmol/L (136-145); Total Bilirubin 0.2 mg/dL (0.15-1.2); Total Protein 5.8 g/dL (6.6-8.7)
[2020-05-26] MEDS: iohexol 300 mg/mL 100 mL Btl IV (20:08)
[2020-05-26] MEDS: pantoprazole DR 40 mg Tablet 80 MG PO (21:04)
[2020-05-26] MEDS: lidocaine 2% viscous 15 ML, aluminum-mag hydrox-simethicon 30 ML, sucralfate oral liq 1 GM PO (21:04)
[2020-05-26 21:09] VITALS: BP 120/78; PULSE 72; RESP 18; O2SAT 97
== END 2020-05-26 21:11 | disposition home or self-care (01) ==
PROVIDERS: Family Medicine; Emergency Provider Emergency Medicine; PCP Family Medicine
DX: R10.13 Epigastric pain (principal)
CPT/HCPCS: 12345; 74177; 80053; 81001; 84703; 85025; 96361; 96374; 96375; 99283; J2270; J2405; J7030; Q9967

== ENCOUNTER 2020-06-24 07:43 | Outpatient (CLI) | payer BC, MEDICAID, SELFPAY ==
--- NOTE | 2020-06-24 08:00 | US_ITS ---
WS: [id number] ULTRASOUND ABDOMEN LIMITED CLINICAL INFORMATION: R10.9 - Unspecified abdominal pain COMPARISON: FINDINGS: Liver Size: Normal. Craniocaudal length: 15.8 cm. Echogenicity: Normal. Surface nodularity: None. Mass (size and location): None. Bile ducts Intrahepatic ducts: Normal. Common bile duct diameter: 0.4 cm. Gallbladder Normal. Gallstones: None. Gallbladder sludge: None. Gallbladder wall thickening: None. Pericholecystic fluid: None. Sonographic Tan sign: Absent. Pancreas Normal as visualized. Right kidney: Normal. Hydronephrosis: None. Size: 10.4 cm x 6.2 cm x 4.5 cm. Abdominal aorta and IVC Visualized portions are normal. Ascites: None. US/US gall bladder [id number] IMPRESSION: Normal abdominal ultrasound
== END 2020-06-24 07:44 | disposition home or self-care (01) ==
LOC: US 07:44
PROVIDERS: PCP Family Medicine; Visit Provider Surgery
DX: R10.9 Unspecified abdominal pain (principal)
CPT/HCPCS: 76705

== ENCOUNTER 2020-07-21 09:43 | Outpatient (CLI) | payer BC, MEDICAID, SELFPAY ==
--- NOTE | 2020-07-21 09:48 | NM_ITS ---
WS: [id number] NUCLEAR MEDICINE HIDA SCAN CLINICAL INFORMATION: ABDOMINAL PAIN TECHNIQUE: Following intravenous administration of 7.7 mCi of technetium 99m mebrofenin, images of th e abdomen were obtained over the course of 60 minutes. Next, gallbladder ejection fraction was determ ined by obtaining preprandial and one-hour postprandial images of the gallbladder following oral regan stion of Ensure. COMPARISON: Ultrasound on 06/24 2020 FINDINGS: Normal hepatic uptake at 5 minutes. Gallbladder is visualized by 15 minutes. Normal small bowel activ ity. Normal common bile duct. No evidence of acute cholecystitis. No evidence of choledocholithiasis. Gallbladder ejection fraction 62% within normal limits. No evidence of chronic cholecystitis. NM/NM hepatobiliary w phar* [id number] IMPRESSION: 1. No evidence of acute or chronic cholecystitis. 2. Gallbladder ejection fraction 62% within normal limits.
== END 2020-07-21 09:44 | disposition home or self-care (01) ==
LOC: NM 09:43
PROVIDERS: PCP Family Medicine; Visit Provider Surgery
DX: R10.9 Unspecified abdominal pain (principal)
CPT/HCPCS: 78227; A9537

== ENCOUNTER 2021-12-17 11:19 | Observation (INO) | payer BC, MEDICAID, SELFPAY ==
[2021-12-16 10:52] VITALS: BMI 22.4
[2021-12-17] VITALS (22 sets, daily range): BP systolic 105–136; BP diastolic 59–89; PULSE 52–83; RESP 12–29; TEMP 36.2–37; O2SAT 95–100
[2021-12-17 06:24] LABS: OR HCG Qualitative Urine Negative (Negative)
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
[2021-12-17] MEDS: sodium chloride 0.9% 1,000 ML 30 ML IV (06:31)
[2021-12-17] MEDS: scopolamine 1.5 Patch 1 PATCH TRANSDERMA (06:35)
[2021-12-17 06:48] LABS: Basophils # 0.1 10^3/uL (0.0-0.1); Basophils % 0.7 %; Eosinophils # 0.1 10^3/uL (0.0-0.8); Eosinophils % 1.2 %; Hematocrit 40.2 % (37.0-47.0); Hemoglobin 14.1 g/dL (11.5-15.3); Lymphocytes # 2.6 10^3/uL (0.8-4.8); Lymphocytes % 30.8 %; Mean Corpuscular HGB Conc 35.1 g/dL (30.0-36.0); Mean Corpuscular Hemoglobin 31.4 pg (28.0-34.0); Mean Corpuscular Volume 89.5 fl (81-99); Mean Platelet Volume 10.6 fL (7.4-10.4); Monocytes # 0.6 10^3/uL (0.2-0.9); Monocytes % 7.5 %; Neutrophils # 5.02 10^3/uL (1.8-7.7); Neutrophils % 59.6 %; Nucleated Red Blood Cells % 0 %; Platelet Count 216 10^3/cmm (130-400); Red Blood Count 4.49 10^6/uL (4.1-5.3); Red Cell Distribution Width 12.6 % (12.1-15.1); White Blood Count 8.4 10^3/uL (4.0-10.0)
--- NOTE | 2021-12-17 06:56 | P.HPUD_ITS ---
Surgery/Procedure H&P Update DATE OF PROCEDURE: December 17, 2021 DATE H&P PERFORMED: 11/18/21 H&P UPDATE INFORMATION: I have reviewed H&P completed within last 30 days, I have examined patient prior to procedure, No changes to prior documentation and H&P is in [facility] [place] EMR on date indicated PREOP DIAGNOSIS: Chronic pelvic pain, abnormal uterine bleeding PLANNED PROCEDURE: Operation Date: 12/17/21 07:00 Proposed Procedures p Laparoscopic assisted vaginal hysterectomy, bilateral salpingectomy [id number],N93.9(Not Applicable) - Jonathan Collazo MD
[2021-12-17] MEDS: ceFAZolin 1,000 MG in sodium chloride 0.9% (plus) 50 ML 100 MG IV (07:00)
[2021-12-17] MEDS: ceFAZolin 1,000 mg SDV 1000 MG IVP (07:29)
[2021-12-17] MEDS: vasopressin 20 unit/mL INJ INJECTION (07:50)
--- NOTE | 2021-12-17 07:53 | SUR.OPER ---
family updated of surgical status
--- NOTE | 2021-12-17 09:22 | SUR.PREOP ---
family updated of surgical status
--- NOTE | 2021-12-17 10:33 | SUR.PHASEI ---
patient into pacu asleep, simple mask in place with sats at 99%. PAtient has gonzalez in place draining urine. dressings to abd dry and intact. abd soft. pt has no pain per faces.
--- NOTE | 2021-12-17 10:41 | P.OP_ITS ---
Operative Report Date of procedure: December 17, 2021 OPERATIVE REPORT Date of surgery: 12/17/2021 Date of dictation:12/17/21 Preoperative diagnosis: Abnormal uterine bleeding, chronic pelvic pain, endometriosis Postoperative diagnosis/findings: On exam under anesthesia 8-week size anteverted uterus, mobile, no adnexal masses, on laparoscopy normal tubes and ovaries bilaterally, normal size uterus without masses, few areas of endometriosis noted on the right uterosacral ligament, no other areas of endometriosis identified. On cystoscopy normal bladder without lesions, bilateral ureteral jets x2, no defects s sutures or other areas of concern identified. Procedure done: LAVH, bilateral salpingectomy Specimens removed/disposition of specimens: Uterus, cervix, bilateral tubes sent to pathology Surgeon: Dr. Jonathan Sorensen Physician dietary assistant:Manjula barbosa Anesthesia: General endotracheal tube anesthesia Estimated blood loss: 400 ml Intravenous fluids: 1600 mL of LR Urine output: 300 mL of clear urine at the end of procedure Medications: As per anesthesia records Complications: None, patient was extubated and taken to the recovery room in a stable condition. PROCEDURE: After consents were obtained, she was taken to the operating room where she was placed under general endotracheal tube anesthesia without any difficulty. She was placed supine on the table in lithotomy position. Her legs were placed in stirrups and care was taken to avoid pressure points. Exam under anesthesia revealed findings noted above. She was then prepped and draped in usual sterile fashion. Weighted speculum and anterior wall retractors were placed in the vagina, cervix visualized and grasped with a tenaculum. ZUMI uterine manipulator was placed into the uterus without any difficulty. Arcos Catheter was placed, instruments were removed from the vagina and the legs were lowered. Attention was turned towards the abdomen. A 10 mm skin incision was made and a 10 mm port was placed through the umbilicus using an open technique. The fascia was identified grasped with [place] clamps elevated and sharply incised. Peritoneum was entered bluntly and palpation revealed no adhesions around site of surgery. The Chapa trocar was placed and attached to the fascia using 0 Vicryl sutures. Once intra-abdominal entry was confirmed gas was turned on and intra-abdominal opening pressure was 2. The abdomen is insufflated until the pressure was 13. Survey of the abdomen showed findings noted above. No injury noted upon entry. No other gross abnormality were identified. Two 5 mm trocar was placed into the right and left lower quadrant under direct visualization after injecting local anesthetic. A 5 mm Voyant cautery device was introduced into the abdomen and the left mesosalpinx, ovarian ligament was clamped, cauterized x3 and then cut. No bleeding was noted. The Voyant was used clamp, cauterize and then cut the broad ligament under the fallopian tube and proceeding inferiorly just lateral to the uterus. The round ligament was also clamped, cauterized and cut. In this way the left fallopian tube left side of the uterus was from the parametria. This was continued to the level just above the cervix. The same procedure was repeated on the right side and using the Voyant -the right ovarian ligament round ligament were grasped, cauterized and cut. Good hemostasis was noted.The right-side of the uterus was thus freed from the parametria in a similar fashion. The ureters were visualized bilaterally well away from site of surgery. Next the anterior bladder flap was created and the bladder was pushed down. The uterine artery on both sides were visualized, clamped and cauterized. Survey of surgery sites showed hemostasis bilaterally. At this point all instruments were taken out of the abdomen, gas was turned off, abdomen was covered with a sterile drape and attention was turned towards the vagina. Patient's legs were raised, weighted speculum placed and cervix was grasped on the anterior and posterior lips with single-toothed tenaculum. 4 Units of Pitressin diluted in 10 mL of saline was injected around the cervix for hydrodissection on all sides. A scalpel was used to make an incision starting posteriorly and then extending anteriorly around the cervix. Leiva scissors was then used to separate the overlying tissue from the cervix. The overlying tissue was also pushed back bluntly using a 4 x 4 gauze. Attention was turned posteriorly where pickups with teeth and Metzenbaum scissors was used to grasp the peritoneum and peritoneal cavity was entered. This peritoneal incision was extended laterally using the Metzenbaum scissors. A long weighted speculum was placed intraperitoneally thus protecting the rectum. Jennifer[place] clamps were used first on the right and then the left to clamp and then cut the paracervical tissue. Then we clamped, cut and sutured both right and left utero sacral ligaments with a Jennifer clamp. This process was repeated again proceeding up the cervix. The bladder was held up, peritoneum was identified and intraperitoneal entry anteriorly was made. A vaginal retractor was placed into the peritoneum thus protecting the bladder from site of surgery. Care was taken to stay medial and to avoid the bladder. The next bite that was placed clamped and then cut the already cauterized uterine artery on the right and then on the left side. These pedicles were were tied and the stitches were cut. Good hemostasis was achieved. With this, the uterus, left tube tube was freed, taken out and sent to pathology. The pedicles in the pelvis was visualized and good hemostasis was noted. The posterior vaginal cuff was noted to be bleeding and was oversewn , attaching the peritoneum to the vaginal cuff with 0 Vicryl in a continuous interlocking fashion. Good hemostasis was achieved. No rectal injury was identified. The angles of the vaginal cuff were grasped with Allis clamps and the angles were held in place. 0 Vicryl was used to close the vaginal cuff in a horizontal fashion using interrupted [id number] sutures. The vaginal cuff was closed and no defects were noted attention was turned to the Vicryl sutures holding the uterosacral ligaments. The sutures were right and left uterosacral ligaments were tied together thus suspending the apex of the vagina. Good support was noted. Cystoscopy was performed with a 70? cystoscope and bilateral ureteral jets were visualized x 2 as well as no suture , lesion or defect was noted in the bladder wall or urethra. Cystoscope was removed, bladder drained and Arcos catheter was replaced. Attention was turned towards the abdomen at this time and patient's legs were lowered. Abdomen was insufflated to a pressure of 13 and the camera was placed in the abdomen. Sites of surgery were visualized and were noted to be hemostatic. The pressure was turned down to 0 and good hemostasis was still noted at the vaginal cuff. The vaginal cuff was intact and no bowel or omentum was noted to be involved with the vaginal cuff suture line. Surgicel was placed over the vaginal cuff. Good hemostasis was noted. The remaining right fallopian tube was identified and using the [employer] cautery device the mesosalpinx was clamped, cauterized and then cut proceeding sequentially until the entire fallopian tube was . The fallopian tube was then taken out through the lateral port without any difficulty. All instruments removed from the abdomen and the abdomen was desufflated. Trochars were removed with the blunt probe in place. The fascia on the umbilicus was closed with 0 Vicryl on a UR needle and good approximation was obtained. The skin incision on all 3 ports was closed with 4-0 Monocryl in a subcuticular fashion. Good reapproximation and hemostasis was noted. Marcaine was injected on the port sites. The incisions were dressed with Steri-Strips, Telfa and Tegaderm. 1 inch vaginal packing with lubrication was placed into the vagina. A Arcos catheter was kept in place. The patient was extubated without any difficulty and taken to the recovery room in a stable condition. This documentation was created by [employer] automation tender software (known for inherent automation tender error). Every effort was made to assure accuracy of automation tender. Any obvious errors or omissions should be clarified with the author of the document. Pre-op diagnosis: Preop Diagnosis Chronic pelvic pain, abnormal uterine bleeding
[2021-12-17] MEDS: fentaNYL 50 mcg/mL INJ 2mL IVP (10:47)
--- NOTE | 2021-12-17 10:49 | SUR.PHASEI ---
patient wakes, complains of pain. medicated per orders. patient on room air, sats at 95%
--- NOTE | 2021-12-17 11:04 | SUR.PHASEI ---
patient wakes and c/o pain, medicated per orders
[2021-12-17] MEDS: HYDROmorphone 1 mg/mL INJ 1 mL 0.25 MG IVP (11:05)
--- NOTE | 2021-12-17 11:17 | SUR.PHASEI ---
report called to september. plan to take patient to room 252-1
--- NOTE | 2021-12-17 11:37 | SUR.PHASEI ---
patient taken to 252-1 nurse in room on arrival. patient scooted self to floor bed well. pt had small amount of drainage to left abdomen steri strip area. other dressings dry and intact. foregin pad in place, dry. gonzalez in place, draining urine. patients present for transport to floor. patient had been calm in pacu, on arrival to elevator wiith present patient started moaning with paint, asked patient if pain got worse suddenly, no answer. patient moaned in pain in room before scooting to floor bed. seemed more calm in floor bed. stated felt nauseous, floor rn september gave patient basin.
[2021-12-17] MEDS: dextrose 5%-lactated ringers 1,000 ML 125 ML IV ×2 (12:21→19:35)
[2021-12-17] MEDS: ibuprofen 800 mg tablet PO ×2 (12:21→19:34)
[2021-12-17] MEDS: HYDROcodone-acetaminophen 5-325 mg Tablet PO (12:22)
[2021-12-17] MEDS: morphine 4 mg/mL SDV 1 mL 2 MG IVP ×2 (13:49→17:02)
--- NOTE | 2021-12-17 16:39 | ANE.PACU2 ---
Inpatient post-anesthesia follow up: Airway intact: Yes Vital signs: Temperature 98.2 F Pulse Rate 58 Respiratory Rate 12 Blood Pressure 119/75 Pulse Oximetry 95 Oxygen Delivery Me thod Room Air Oxygen Flow Rate 6 Fraction of Inspir ed Oxygen Hydration adequate: Yes Nausea and vomiting: No Pain level: 1 Mental status: Baseline
[2021-12-17] MEDS: ondansetron 2 mg/ML SDV 2 mL 4 MG IVP ×2 (16:59→22:23)
[2021-12-17] MEDS: docusate sodium 100 mg Capsule PO (17:03)
--- NOTE | 2021-12-17 18:04 | PC.NURSE ---
Patient resting in bed with at bedside. VSS, AAOx4, good UOP, room clean and clutter free with call light in reach. Hardy in place and patent, patient OOBTC. Pain controlled with pain meds per aug. No new events or needs. Incision sites remain intact with some drainage to LLQ. Tolerating liquids, will report bedside to oncoming nurse at shift change.
[2021-12-17] MEDS: HYDROcodone-acetaminophen 5-325 mg Tablet 1 TAB PO (22:29)
[2021-12-18] MEDS: ibuprofen 800 mg tablet PO ×2 (03:15→12:47)
[2021-12-18] MEDS: dextrose 5%-lactated ringers 1,000 ML 125 ML IV (03:16)
[2021-12-18] MEDS: sodium chloride 0.9% 500 ML IV (04:25)
[2021-12-18 05:27] LABS: Hematocrit 34.4 % (37.0-47.0); Hemoglobin 12.1 g/dL (11.5-15.3); Mean Corpuscular HGB Conc 35.2 g/dL (30.0-36.0); Mean Corpuscular Hemoglobin 31.5 pg (28.0-34.0); Mean Corpuscular Volume 89.6 fl (81-99); Mean Platelet Volume 10.8 fL (7.4-10.4); Platelet Count 181 10^3/cmm (130-400); Red Blood Count 3.84 10^6/uL (4.1-5.3); Red Cell Distribution Width 12.7 % (12.1-15.1); White Blood Count 13.3 10^3/uL (4.0-10.0)
[2021-12-18] MEDS: HYDROcodone-acetaminophen 5-325 mg Tablet 1 TAB PO ×2 (06:15→11:22)
[2021-12-18 06:29] VITALS: BP 104/67; PULSE 62; RESP 23; TEMP 36.4; O2SAT 98
[2021-12-18 08:00] VITALS: BP 105/62; PULSE 56; RESP 18; TEMP 36.7; O2SAT 99
[2021-12-18] MEDS: docusate sodium 100 mg Capsule PO (08:31)
--- NOTE | 2021-12-18 09:50 | PC.NURSE ---
spoke with physician and reported 350mL of urine out in 3 hours. Orders given to remove gonzalez and voiding trial x3 w bladder scan after. Amount of urine in hat and on bladder scanner to be called to the physician each time. Orders given for three voids by 1530. Patient also instructed to walk 20 laps by 1pm around unit. Patient currently walking , counting laps.
[2021-12-18 11:34] VITALS: BP 121/73; PULSE 50; RESP 16; TEMP 36.7; O2SAT 98
--- NOTE | 2021-12-18 13:42 | PM.OBGYDC ---
Discharge Providers KEYPUNCHER Date of Admission: 12/17/21 11:19 Date of Discharge: 12/18/21 Attending Provider at Admission: Jonathan Collazo MD Attending Provider at Discharge: Jonathan Collazo MD ADMISSION DIAGNOSIS: 31-year-old 2 para 2-0-0-2 Chronic pelvic pain, abnormal uterine bleeding Endometriosis DISCHARGE DIAGNOSIS: Status post LAVH, bilateral salpingectomy on 12/17/2021 PREHOSPITAL COURSE: Ms. Pavon is a 31-year-old 2 para 2-0-0-2 who has a longstanding history of chronic pelvic pain endometriosis abnormal uterine bleeding and she desired surgical management for this. She presented to the operating room on 12/17/2021 for scheduled surgery and denies any new concerns or complaints HOSPITAL COURSE: She underwent an uncomplicated LAVH, bilateral salpingectomy. She did well on postoperative day 0 and was ambulating well, tolerating clear liquid diet. Pain was well-controlled with by mouth and IV pain medication. She denied nausea, vomiting, fever, chills, shortness of breath, leg pain. She had minimal vaginal bleeding. Arcos catheter was kept overnight and she had adequate urine output. On postoperative day #1 she continued to do well with stable vital signs and stable hemoglobin at 12.1. Arcos catheter was removed and patient was able to void with minimal residual noted on bladder scan. She ambulated well started passing flatus and then tolerated a regular diet. She was discharged home on postoperative day #1 in a stable condition. Warning signs for wound infection, cuff infection, DVT/PE were reviewed with her. Post surgical activity restrictions were also reviewed with her at all her questions were answered to her satisfaction. This documentation was created by [employer] satellite project site monitor software (known for inherent satellite project site monitor error). Every effort was made to assure accuracy of satellite project site monitor. Any obvious errors or omissions should be clarified with the author of the document. Primary Care Provider: Annel Garcia MD Physical Exam Urinary Catheter Management: Arcos Latex: Cath Placed During This Visit: yes Urinary Catheter Date of Insertion: 12/17/21 Urinary Catheter Time of Insertion: 07:32 History History History 2 Term 2 Miscarriages/Ectopic 0 0 Living Children 2 Discharge Data Studies Completed and Pending Pending at discharge Category Date Time Status ES surgery / GI images Routine Exams 12/17/21 06:40 Taken Pathology: Surgical [PTH] Routine Pth 12/17/21 10:01 Received Laboratory Results WBC 13.3 10^3/uL (4.0-10.0) H 12/18/21 04:54 RBC 3.84 10^6/uL (4.1-5.3) L 12/18/21 04:54 Hgb 12.1 g/dL (11.5-15.3) 12/18/21 04:54 Hct 34.4 % (37.0-47.0) L 12/18/21 04:54 MCV 89.6 fl (81-99) 12/18/21 04:54 MCH 31.5 pg (28.0-34.0) 12/18/21 04:54 MCHC 35.2 g/dL (30.0-36.0) 12/18/21 04:54 RDW 12.7 % (12.1-15.1) 12/18/21 04:54 Plt Count 181 10^3/cmm (130-400) 12/18/21 04:54 MPV 10.8 fL (7.4-10.4) H 12/18/21 04:54 Neut % (Auto) 59.6 % 12/17/21 06:27 Lymph % (Auto) 30.8 % 12/17/21 06:27 Bledsoe % (Auto) 7.5 % 12/17/21 06:27 Eos % (Auto) 1.2 % 12/17/21 06:27 Baso % (Auto) 0.7 % 12/17/21 06:27 Neut # (Auto) 5.02 10^3/uL (1.8-7.7) 12/17/21 06:27 Lymph # (Auto) 2.6 10^3/uL (0.8-4.8) 12/17/21 06:27 Bledsoe # (Auto) 0.6 10^3/uL (0.2-0.9) 12/17/21 06:27 Eos # (Auto) 0.1 10^3/uL (0.0-0.8) 12/17/21 06:27 Baso # (Auto) 0.1 10^3/uL (0.0-0.1) 12/17/21 06:27 Nucleated RBC % (auto) 0 % 07/07/22 06:27 Nucleated RBCs # 0.0 /100WBC 12/17/21 06:27 Urine HCG, Qual Negative (Negative) 12/17/21 06:04 Blood Type A Positive 12/17/21 06:27 Rho(D) Type Positive 12/17/21 06:27 Antibody Screen Negative 12/17/21 06:27 Vitals Last Vital Signs Temp 98.0 F 12/18/21 11:34 Pulse 50 L 12/18/21 11:34 Resp 16 12/18/21 11:34 BP 121/73 12/18/21 11:34 Pulse Ox 98 12/18/21 11:34 Discharge Plan Discharge Patient Disposition: Home Condition: Stable Prescriptions: New hydrocodone-acetaminophen 5-325 mg tablet 1 tab PO Q6H Qty: 25 0RF Rx Instructions: Alternate with ibuprofen docusate sodium 100 mg Capsule 100 mg PO BID PRN (Reason: constipation) Qty: 30 0RF ibuprofen 800 mg tablet 800 mg PO Q8H Qty: 30 0RF No Action No Known Home Medications 0RF Discharge Orders: Discharge Order (Routine); Ordered 12/18/21 Ordered By: Jonathan Collazo Referrals: Jonathan Collazo MD [Physician] - Discharge Diet: Regular Discharge Activity: Limit activity as instructed Patient Instructions: Opioid Safety Activity Restrictions/Additional Instructions: No heavy lifting for 6 weeks, pelvic rest for 6 weeks Follow-up with Dr. Sorensen 2-week and 6-week Emergency room precautions reviewed Discharge Attestations KEYPUNCHER Time Spent in Discharge Care*: greater than 30 min Coding Level of Care Code Acute Stonemason Apprentice for Jenng Man
--- NOTE | 2021-12-18 14:04 | PC.NURSE ---
pt ambulated and walked 20 laps around unit by 1pm
[2021-12-18 15:40] VITALS: BP 100/66; PULSE 76; RESP 16; TEMP 36.6; O2SAT 99
[2021-12-18 16:51] VITALS: BP 100/66; PULSE 76; RESP 16; TEMP 36.6; O2SAT 99
== END 2021-12-18 16:53 | disposition home or self-care (01) ==
LOC: MEDSURG 11:19
PROVIDERS: Admitting Provider Obstetrics & Gynecology; PCP Family Medicine; Visit Provider Obstetrics & Gynecology
PROC: 0UT9FZZ Resection of Uterus, Via Natural or Artificial Opening With Percutaneous Endoscopic Assistance (ICD-10-PCS; CPT 58552; principal; 2021-12-17 07:00)
PROC: (CPT 58661; 2021-12-17 07:00)
PROC: 0TJB8ZZ Inspection of Bladder, Via Natural or Artificial Opening Endoscopic (ICD-10-PCS; CPT 52000; 2021-12-17 07:00)
DX: N93.9 Abnormal uterine and vaginal bleeding, unspecified (principal); N80.0 Endometriosis of uterus
CPT/HCPCS: 58552; 36415; 51798; 81025; 84703; 85025; 85027; 86850; 86900; 88307; G0378; J0690; J1100; J1170; J1200; J2250; J2270; J2405; J2704; J2710; J3010; J3490; J7030; J7040

== ENCOUNTER 2021-12-26 02:05 | Emergency (ER) | payer BC, MEDICAID, SELFPAY ==
[2021-12-26 02:20] VITALS: BP 147/87; PULSE 90; RESP 18; TEMP 36.7; O2SAT 98; BMI 21.9
--- NOTE | 2021-12-26 02:55 | CTR_ITS ---
PROCEDURE INFORMATION: Exam: CT Abdomen And Pelvis With Contrast Exam date and time: 12/26/2021 3:25 AM Age: 31 years old Clinical indication: Abdominal pain; Generalized; Prior surgery; Surgery date: <1 month; Surgery type: Hysterectomy; Additional info: Abdominal pain post hysterectomy TECHNIQUE: Imaging protocol: Computed tomography of the abdomen and pelvis with contrast. Radiation optimization: All CT scans at this facility use at least one of these dose optimization techniques: automated exposure control; mA and/or kV adjustment per patient size (includes targeted exams where dose is matched to clinical indication); or iterative reconstruction. Contrast material: OMNI 350; Contrast volume: 90 ml; Contrast route: INTRAVENOUS (IV); COMPARISON: CT abdomen pelvis w con* [id number] 05/26/2020 7:52 PM RADIATION DOSE METRICS: Total DLP (mGy-cm): 895.53 FINDINGS: Liver: Normal. No mass. Gallbladder and bile ducts: No calcified stones. No ductal dilation. Pancreas: Normal. No ductal dilation. Spleen: Punctate calcified granuloma is seen. Normal splenic parenchymal attenuation. No splenomegaly. Adrenal glands: Normal. No mass. Kidneys and ureters: Normal. No hydronephrosis. Stomach and bowel: The noncontrast opacified stomach appears unremarkable. The noncontrast opacified loops of small bowel show some moderately distended loops of distal ileum in the pelvis with mottled bowel gas (series 3 images 55 to 68). These findings could represent partial chronic distal small bowel obstruction or may represent adynamic ileus due to adjacent inflammatory changes. CT after oral contrast administration or small-bowel follow-through exam may be performed for complete assessment. The noncontrast opacified colonic loops show moderate gas and fecal material in the ascending colon and transverse colon. Mild gas and fecal material is seen in the descending colon. The sigmoid colon and rectum are not distended. The lack of orally administered contrast material limits assessment. Appendix: Surgical clips adjacent to the cecum, suggestive of prior appendectomy. Intraperitoneal space: Mild pelvic fat stranding is seen. There are no loculated fluid collections or abscess. There is no pneumoperitoneum. Some phleboliths are seen in the pelvis. Vasculature: No abdominal aortic aneurysm. Inferior vena cava and portal vein appear unremarkable. Lymph nodes: No enlarged lymph nodes. Urinary bladder: Unremarkable as visualized. Reproductive: Status post hysterectomy. Moderate soft tissue thickening of the vaginal cuff region with enhancement. Some air is seen in the vagina. Vaginal cuff dehiscence or enterovaginal fistula cannot be excluded. CT after oral contrast administration with delayed images may be performed for further evaluation. Bones/joints: No acute osseous abnormality seen. Soft tissues: Unremarkable. CT/CT abdomen pelvis w con* [id number] IMPRESSION: 1. Status post hysterectomy. Moderate soft tissue thickening of the vaginal cuff region with enhancement. Some air seen in the vagina. Vaginal cuff dehiscence or enterovaginal fistula cannot be excluded. CT after oral contrast administration with delayed images may be performed for further evaluation. Mild pelvic fat stranding and inflammatory changes. No loculated fluid collections or abscess. No free air. 2. Some moderately distended loops of distal ileum in the pelvis with mottled bowel gas (series 3 images 55 to 68). These findings could represent partial chronic distal small bowel obstruction or may represent adynamic ileus due to adjacent inflammatory changes. CT after oral contrast administration or small-bowel follow-through exam may be performed for complete assessment. 3. Moderate gas and fecal material in the ascending colon and transverse colon. Mild gas and fecal material is seen in the descending colon. The sigmoid colon and rectum are not distended.
[2021-12-26] MEDS: ondansetron 2 mg/ML SDV 2 mL 4 MG IVP (03:25)
[2021-12-26] MEDS: ketorolac 30 mg/mL INJ IVP (03:25)
[2021-12-26] MEDS: sodium chloride 0.9% 1,000 ML 999 ML IV (03:25)
[2021-12-26 03:26] LABS: Basophils # 0.1 10^3/uL (0.0-0.1); Basophils % 0.6 %; Eosinophils # 0.2 10^3/uL (0.0-0.8); Eosinophils % 1.3 %; Hematocrit 39.6 % (37.0-47.0); Hemoglobin 14.1 g/dL (11.5-15.3); Lymphocytes # 2.5 10^3/uL (0.8-4.8); Lymphocytes % 21.6 %; Mean Corpuscular HGB Conc 35.6 g/dL (30.0-36.0); Monocytes # 0.8 10^3/uL (0.2-0.9); Neutrophils # 7.94 10^3/uL (1.8-7.7); Neutrophils % 69.2 %; Nucleated Red Blood Cells % 0 %; Platelet Count 314 10^3/cmm (130-400); Red Blood Count 4.55 10^6/uL (4.1-5.3); Red Cell Distribution Width 11.9 % (12.1-15.1); White Blood Count 11.5 10^3/uL (4.0-10.0)
[2021-12-26] MEDS: iohexol 300 mg/mL 100 mL Btl IV (03:34)
[2021-12-26 03:37] LABS: Add Urine Microscopic? YES; Bilirubin Urine Neg (Negative); Blood Urine 3+ (Negative); Glucose Urine UA Norm (Normal); Ketones Urine Negative (Negative); Leukocyte Esterase Urine 2+ (Negative); Nitrate Urine Negative (Negative); Protein Urine Neg (Negative); Specific Gravity, Urine 1.025 (1.005-1.030); Urine Appearance Clear (CLEAR); Urine Color Yellow (Yellow); Urobilinogen Urine Norm (Negative); pH Urine 5 (5-7)
--- NOTE | 2021-12-26 03:38 | ED_ITS ---
HPI - Abdominal Pain General: Chief Complaint: Abdominal Pain Stated Complaint: abd pain post surgery Time Seen by Provider: 12/26/21 02:31 History of Present Illness: 31-year-old female who had a hysterectomy 9 days ago. She reports since that time, she has not been able to fully evacuate her bowels. She says that she feels tightness, bloating, and increasing pain to her lower belly. She denies significant vaginal bleeding or discharge. She denies blood from the rectum. She denies fever. She states other than the constipation her recovery has been fine. She has taken several things at home including fiber and docusate. She denies fever or vomiting. MD elicited complaint: abdominal pain Pertinent past history: other Onset (ago): day(s) Pain Consistency: constant Location: Diffuse Severity: moderate Quality: aching and fullness Radiation: none Migration to: no migration Relieving factors: nothing Associated Symptoms: Reports anorexia, bloating, change in bowel habits and constipation; Denies fever(s), hematochezia, hematemesis, loose stools and vomiting Related Data: Date of Last Menstrual Period: 12/15/21 Review of Systems Const: Denies: fever(s) Eyes: Denies: change in vision Card: Denies: chest pain or palpitations Resp: Denies: dyspnea, productive cough or non-productive cough GI: Reports: constipation, bloating and change in bowel habits; Denies: vomiting, hematemesis or hematochezia PFS ED PFSH: Medical History Endometriosis Diagnosed at the age of 16 by laparoscopy No pertinent past medical history Denies diabetes, asthma, hypertension, seizures, DVT/PE PCP: SYLWIA Hdz at [facility] Surgical History History of appendectomy 2019--laparoscopic procedure at [facility] [place]. History of surgery Removal of lipoma from back in 2019--benign Hx of tonsillectomy At the age of 17 Status post laparoscopy At the age of [address] Beal for dysmenorrhea--was diagnosed with endometriosis and states that scar tissue was burned Family History Grandfather Diabetes paternal Hypertension paternal Father Hypertension Hyperlipidemia Family/Other Hypertension paternal aunt Denies family history of Colon cancer Ovarian cancer Heart disease Breast cancer Uterine cancer Thyroid condition Stroke Female Reproductive History: Date of last menstrual period: 12/15/21 Physical Exam Const: COMMON NORMALS: no acute distress GENERAL APPEARANCE: cooperative and well kempt; not ill appearing HENMT: COMMON NORMALS: normocephalic and Normal external nose present HEAD & SCALP: normocephalic FACE & SINUS: normal facial exam and face symmetric NOSE: Normal external nose present Eye: COMMON NORMALS: Equal, round and reactive pupils present and EOMs intact bilaterally PUPIL: Yes Equal, round and reactive pupils present Neck/C-Spine: GENERAL: Yes trachea midline Resp: COMMON NORMALS: normal respiratory effort and clear to auscultation bilaterally AUSCULTATION: clear to auscultation bilaterally Cardio: COMMON NORMALS: regular rate and regular rhythm RATE: regular rate RHYTHM: regular rhythm GI: COMMON NORMALS: Soft to palpation PALPATION: Yes Soft to palpation and Yes Tenderness to palpation present (GI) (diffuse) Extremity: COMMON NORMALS: normal to inspection Neuro: LINCOLN COMA SCALE: document GCS findings Williams coma scale eye opening: Spontaneous Lincoln coma scale verbal response: Orientated Lincoln coma scale motor response: Obey commands Lincoln coma scale total score: 15 Psych: APPEARANCE: Yes well kempt Course Vital Signs: Vital signs: Vital Signs Temperature 98.0 F 12/26/21 02:20 Pulse Rate 90 12/26/21 02:20 Respiratory Rate 18 12/26/21 02:20 Blood Pressure 147/87 12/26/21 02:20 Pulse Oximetry 98 12/26/21 02:20 MDM - Abdominal Pain Medical Decision Making diffuse belly pain in a patient who is a few days post-op from hysterectomy. She is afebrile. White blood cell count is 11.5. Other laboratory is not terribly remarkable. She has what appears to be a postoperative ileus on CT. She's not vomiting. She'll be treated with liquid diet, relative bowel rest, and stimulant laxative. Strict return instructions were given. She does have some inflammation of her anterior abdominal wall, but without any evidence of Abscess. she will follow up with her surgeon next week. Lab Data : 12/26/21 03:10 12/26/21 03:10 Labs/Radiology: Radiology Impressions Abdomen/Pelvis CT 12/26/21 02:55 IMPRESSION: 1. Status post hysterectomy. Moderate soft tissue thickening of the vaginal cuff region with enhancement. Some air seen in the vagina. Vaginal cuff dehiscence or enterovaginal fistula cannot be excluded. CT after oral contrast administration with delayed images may be performed for further evaluation. Mild pelvic fat stranding and inflammatory changes. No loculated fluid collections or abscess. No free air. 2. Some moderately distended loops of distal ileum in the pelvis with mottled bowel gas (series 3 images 55 to 68). These findings could represent partial chronic distal small bowel obstruction or may represent adynamic ileus due to adjacent inflammatory changes. CT after oral contrast administration or small-bowel follow-through exam may be performed for complete assessment. 3. Moderate gas and fecal material in the ascending colon and transverse colon. Mild gas and fecal material is seen in the descending colon. The sigmoid colon and rectum are not distended. Laboratory Results WBC 11.5 10^3/uL (4.0-10.0) H 12/26/21 03:10 RBC 4.55 10^6/uL (4.1-5.3) 12/26/21 03:10 Hgb 14.1 g/dL (11.5-15.3) 12/26/21 03:10 Hct 39.6 % (37.0-47.0) 12/26/21 03:10 MCV 87.0 fl (81-99) 12/26/21 03:10 MCH 31.0 pg (28.0-34.0) 12/26/21 03:10 MCHC 35.6 g/dL (30.0-36.0) 12/26/21 03:10 RDW 11.9 % (12.1-15.1) L 12/26/21 03:10 Plt Count 314 10^3/cmm (130-400) 12/26/21 03:10 MPV 10.0 fL (7.4-10.4) 12/26/21 03:10 Neut % (Auto) 69.2 % 12/26/21 03:10 Lymph % (Auto) 21.6 % 12/26/21 03:10 Real % (Auto) 7.0 % 12/26/21 03:10 Eos % (Auto) 1.3 % 12/26/21 03:10 Baso % (Auto) 0.6 % 12/26/21 03:10 Neut # (Auto) 7.94 10^3/uL (1.8-7.7) H 12/26/21 03:10 Lymph # (Auto) 2.5 10^3/uL (0.8-4.8) 12/26/21 03:10 Real # (Auto) 0.8 10^3/uL (0.2-0.9) 12/26/21 03:10 Eos # (Auto) 0.2 10^3/uL (0.0-0.8) 12/26/21 03:10 Baso # (Auto) 0.1 10^3/uL (0.0-0.1) 12/26/21 03:10 Nucleated RBC % (auto) 0 % 12/26/21 03:10 Nucleated RBCs # 0.0 /100WBC 12/26/21 03:10 Sodium 137 mmol/L (136-145) 12/26/21 03:10 Potassium 4.5 mmol/L (3.5-5.1) 12/26/21 03:10 Chloride 100 mmol/L (98-107) 12/26/21 03:10 Carbon Dioxide 25 mmol/L (22-29) 12/26/21 03:10 Anion Gap 16.5 (5-19) 12/26/21 03:10 BUN 13 mg/dL (6-20) 12/26/21 03:10 Creatinine 0.4 mg/dL (0.5-0.9) L 12/26/21 03:10 GFR Calculation 187.4 mL/min (90-130) H 12/26/21 03:10 Glucose 94 mg/dL (65-115) 12/26/21 03:10 Calculated Osmolality 284 mOsm/kg (285-295) L 12/26/21 03:10 Calcium 9.7 mg/dL (8.5-10.5) 12/26/21 03:10 Total Bilirubin 0.4 mg/dL (0.15-1.2) 12/26/21 03:10 AST 15 U/L (0-32) 12/26/21 03:10 ALT 11 U/L (0-33) 12/26/21 03:10 Alkaline Phosphatase 70 IU/L (35-105) 12/26/21 03:10 C-Reactive Protein 85.2 mg/L (0.0-4.9) H 12/26/21 03:10 Total Protein 7.5 g/dL (6.6-8.7) 12/26/21 03:10 Albumin 4.1 g/dL (3.5-5.2) 12/26/21 03:10 Globulin 3.4 g/dL (1.3-4.6) 12/26/21 03:10 Lipase 12 U/L (13-60) L 12/26/21 03:10 Urine Color Yellow (Yellow) 12/26/21 03:20 Urine Appearance Clear (CLEAR) 12/26/21 03:20 Urine pH 5 (5-7) 12/26/21 03:20 Ur Specific [place] 1.025 (1.005-1.030) 12/26/21 03:20 Urine Protein Neg (Negative) 12/26/21 03:20 Urine Glucose (UA) Norm (Normal) 12/26/21 03:20 Urine Ketones Negative (Negative) 12/26/21 03:20 Urine Blood 3+ (Negative) H 12/26/21 03:20 Urine Nitrate Negative (Negative) 12/26/21 03:20 Urine Bilirubin Neg (Negative) 12/26/21 03:20 Urine Urobilinogen Norm mg/dL (Negative) 12/26/21 03:20 Ur Leukocyte Esterase 2+ (Negative) H 12/26/21 03:20 Urine RBC 5-10 /hpf (0-2) H 12/26/21 03:20 Urine WBC 10-15 /hpf (0-5) H 12/26/21 03:20 Ur Squamous Epith Cells 15-25 /hpf (0-5) H 12/26/21 03:20 Amorphous Sediment Not Reportable 12/26/21 03:20 Urine Bacteria 1+ /hpf (NONE) H 12/26/21 03:20 Urine Mucus 2+ /hpf 12/26/21 03:20 Discharge Plan Discharge Patient Disposition: Home Clinical Impression: Ileus, postoperative Condition: Stable Prescriptions: New ketorolac 10 mg tablet 10 mg PO TID PRN (Reason: pain) Qty: 10 0RF Continued hydrocodone-acetaminophen 5-325 mg tablet 1 tab PO Q6H Qty: 10 0RF Rx Instructions: Alternate with ibuprofen Discontinued ibuprofen 800 mg tablet 800 mg PO Q8H Qty: 30 0RF No Action docusate sodium 100 mg Capsule 100 mg PO BID PRN (Reason: constipation) Qty: 30 0RF Discharge Orders: Discharge ED (Routine); Ordered 12/26/21 Ordered By: Dewayne Constantino Referrals: Annel Garcia MD [Primary Care Provider] - Jonathan Collazo MD [Physician] - 1-3 days Discharge Diet: Clear Liquid Discharge Activity: Increase activity as tolerated Patient Instructions: Ileus (ED), Opioid Safety Activity Restrictions/Additional Instructions: Return for fever greater than 100, vomiting liquids or medications, increasing pain despite treatment, any other concerning symptoms. Follow a liquid diet for the next 36 hours. After you have passed normal bowel movements, at that point, you may begin to add solid food back into your diet. Call your surgeon on Tuesday, and let them know you were here with a postoperative ileus. They may have more advice or wish to see you. Coding Level of Care Code ED Seismograph Computer for Gregg Conway
[2021-12-26 03:39] LABS: Add Urine Culture? No; Bacteria Urine 1+ /hpf; Mucus Urine 2+ /hpf; Squamous Epithelial Cell Urine 15-25 /hpf (0-5)
[2021-12-26 03:52] LABS: Albumin Level 4.1 g/dL (3.5-5.2); Alkaline Phosphatase 70 IU/L (35-105); Blood Urea Nitrogen 13 mg/dL (6-20); C Reactive Protein 85.2 mg/L (0.0-4.9); Calcium 9.7 mg/dL (8.5-10.5); Carbon Dioxide 25 mmol/L (22-29); Chloride 100 mmol/L (98-107); Globulin 3.4 g/dL (1.3-4.6); Glomerular Filtration Rate 187.4 mL/min (90-130); Glucose 94 mg/dL (65-115); Lipase 12 U/L (13-60); Osmolality Calculated 284 mOsm/kg (285-295); Sodium 137 mmol/L (136-145); Total Bilirubin 0.4 mg/dL (0.15-1.2); Total Protein 7.5 g/dL (6.6-8.7)
[2021-12-26 03:57] LABS: Anion Gap 16.5 (5-19); Potassium 4.5 mmol/L (3.5-5.1)
[2021-12-26 03:58] LABS: Alanine Aminotransferase 11 U/L (0-33); Aspartate Amino Transferase 15 U/L (0-32)
--- NOTE | 2021-12-26 05:14 | PC.NURSE ---
pt sleeping at this time
[2021-12-26] MEDS: magnesium hydroxide 30 mL UDC PO (06:12)
[2021-12-26] MEDS: lactulose oral liq 20 gm/30 mL UDC 30 GM PO (06:12)
[2021-12-26] MEDS: mineral oil 30 mL UDC PO (06:12)
== END 2021-12-26 06:21 | disposition home or self-care (01) ==
PROVIDERS: Emergency Provider Emergency Medicine; PCP Family Medicine
DX: K91.89 Other postprocedural complications and disorders of digestive system (principal); K56.7 Ileus, unspecified
CPT/HCPCS: 74177; 80053; 81001; 83690; 85025; 86140; 96374; 96375; 99285; J1885; J2405; J7030; Q9967

== ENCOUNTER → 2022-06-19 16:55 | Outpatient (BNVA) | payer BC, MEDICAID, SELFPAY | PROVIDERS: PCP Family Medicine; Visit Provider Registered Nurse Neonatal Intensive Care | DX: J02.9 Acute pharyngitis, unspecified (principal) | CPT/HCPCS: 87071; 87880 ==

== ENCOUNTER 2023-02-10 14:49 | Outpatient (CLI) | payer BC, MEDICAID, SELFPAY ==
--- NOTE | 2023-02-10 14:55 | MM_ITS ---
WS: [id number] BILATERAL 3D TOMOSYNTHESIS DIGITAL DIAGNOSTIC MAMMOGRAPHY WITH CAD CLINICAL INFORMATION: N63.0 - Unspecified lump in unspecified breast HISTORY: Bilateral breast lumps COMPARISON: None. TECHNIQUE: Bilateral CC, MLO, and ML views. FINDINGS: The breasts are composed of heterogeneous fibroglandular density, which can limit the detection of sm all underlying mass lesions. Bilateral palpable markers. Dense nodular underlying parenchymal tissue. Ultrasound of these areas is pending. No other suspicious abnormalities. ULTRASOUND BREAST BILATERAL TECHNIQUE: Ultrasound bilateral breast focused area of concern. CLINICAL INFORMATION: N63.0 - Unspecified lump in unspecified breast FINDINGS: RIGHT BREAST: Ultrasound RIGHT breast at the 12 o'clock position near the areola. Normal underlying p arenchymal tissue. No suspicious findings. LEFT BREAST: Ultrasound LEFT breast in the area of concern at the 3 o'clock position 2 cm from the ni pple. Underlying parenchymal tissue. No cystic or solid lesions. No suspicious lesions to target for biopsy. IMPRESSION: MM/[place] [id number] BI-RADS: 2-Benign FOLLOW UP: Age 41 Recommend annual screen mammography age 41
--- NOTE | 2023-02-10 15:30 | US_ITS ---
WS: [id number] BILATERAL 3D TOMOSYNTHESIS DIGITAL DIAGNOSTIC MAMMOGRAPHY WITH CAD CLINICAL INFORMATION: N63.0 - Unspecified lump in unspecified breast HISTORY: Bilateral breast lumps COMPARISON: None. TECHNIQUE: Bilateral CC, MLO, and ML views. FINDINGS: The breasts are composed of heterogeneous fibroglandular density, which can limit the detection of sm all underlying mass lesions. Bilateral palpable markers. Dense nodular underlying parenchymal tissue. Ultrasound of these areas is pending. No other suspicious abnormalities. ULTRASOUND BREAST BILATERAL TECHNIQUE: Ultrasound bilateral breast focused area of concern. CLINICAL INFORMATION: N63.0 - Unspecified lump in unspecified breast FINDINGS: RIGHT BREAST: Ultrasound RIGHT breast at the 12 o'clock position near the areola. Normal underlying p arenchymal tissue. No suspicious findings. LEFT BREAST: Ultrasound LEFT breast in the area of concern at the 3 o'clock position 2 cm from the ni pple. Underlying parenchymal tissue. No cystic or solid lesions. No suspicious lesions to target for biopsy. IMPRESSION: US/US breast BI limited* [id number] BI-RADS: 2-Benign FOLLOW UP: Age 41 Recommend annual screen mammography age 41
== END 2023-02-10 14:50 | disposition home or self-care (01) ==
LOC: RAD 14:51
PROVIDERS: PCP Family Medicine; Visit Provider Nurse Practitioner Women's Health
DX: N63.15 Unspecified lump in the right breast, overlapping quadrants (principal); N63.25 Unspecified lump in the left breast, overlapping quadrants
CPT/HCPCS: 76642; 77062; G0279

== ENCOUNTER → 2024-03-13 15:13 | Outpatient (BNVA) | payer BC, MEDICAID, SELFPAY | PROVIDERS: PCP Family Medicine; Visit Provider Podiatrist Foot & Ankle Surgery | DX: M79.671 Pain in right foot (principal); M79.672 Pain in left foot; M72.2 Plantar fascial fibromatosis | CPT/HCPCS: 73630 ==

== ENCOUNTER 2024-11-13 15:09 | Outpatient (CLI) | payer MEDICAID, SELFPAY ==
[2024-11-13 17:01] LABS: Thyroid Stimulating Hormone 0.79 uIU/mL (0.27-4.20)
[2024-11-13 22:18] LABS: Free T4 Free Thyroxine 1.04 ng/dL (0.82-1.77)
== END 2024-11-13 15:10 | disposition home or self-care (01) ==
PROVIDERS: PCP Family Medicine; Visit Provider Internal Medicine
DX: N80.9 Endometriosis, unspecified (principal); L74.510 Primary focal hyperhidrosis, axilla
CPT/HCPCS: 36415; 83516; 84439; 84443; 86376; 86800

== ENCOUNTER → 2024-11-28 13:42 | Outpatient (BNVA) | payer MEDICAID, SELFPAY | PROVIDERS: PCP Family Medicine; Visit Provider Podiatrist Foot & Ankle Surgery | DX: M72.2 Plantar fascial fibromatosis (principal); M21.6X1 Other acquired deformities of right foot; M21.6X2 Other acquired deformities of left foot | CPT/HCPCS: 73630 ==

== ENCOUNTER 2025-05-30 09:25 | Outpatient (CLI) | payer MEDICAID, SELFPAY ==
--- NOTE | 2025-05-30 09:30 | MR_ITS ---
WS: [id number] MRI LEFT FOOT WITH AND WITHOUT CONTRAST. COMPARISON: Radiograph 11/28/2024 Multiplanar, multisequence imaging is performed with and without contrast. Sagittal and axial T1 fat sat sequences post-MultiHance 14 cc IV. Markers placed along the medial foot at the level of the metatarsals in the area of pain. There is no underlying mass identified. Mild hallux valgus deformity. No fractures or marrow edema. No stress fracture. No soft tissue inflammation. Normal alignment at the tarsometatarsal junction. Normal Lisfranc ligament. No soft tissue masses or inflammation along the tendons or ligaments. No ganglion. No enhancement or mass. Please note MRI of the foot does not include the entire plantar fascia. Plantar fascia insertion to the calcaneus is included on the MRI ankle. MR/MR foot LT wo/w con [id number] IMPRESSION: Normal MRI LEFT foot.
[2025-05-30] MEDS: gadobenate dimeglumine 20 mL vial 14 ML IV (10:25)
== END 2025-05-30 09:26 | disposition home or self-care (01) ==
LOC: RAD 09:26
PROVIDERS: PCP Nurse Practitioner Family; Visit Provider Podiatrist Foot & Ankle Surgery
DX: M79.89 Other specified soft tissue disorders (principal)
CPT/HCPCS: 73720